=== PATIENT | male | born 1970 | race Caucasian/White ===

== ENCOUNTER 2017-04-27 20:54 | Emergency (ER) | payer OTHER ==
[~2017-04-27] VITALS: Ht 180.3 cm; Wt 110.3 kg
[2017-04-27 20:57] VITALS: TEMP 37.4; Ht 180.3 cm; Wt 110.3 kg
[2017-04-27 21:22] VITALS: O2SAT 94
[2017-04-27] MEDS ORDERED: OPTIRAY 320 IV PRN (21:30)
[2017-04-27 21:37] LABS: ISTAT CREATININE 1.3 mg/dl (0.6-1.3); ISTAT HEMOGLOBIN 15.6 g/dl (14.0-18.0); ISTAT IONIZED CALCIUM 1.26 mmol/l (1.12-1.32)
[2017-04-27 21:50] LABS: ALKALINE PHOSPHATASE 106 U/L (45-117); ALT/SGPT 75 U/L (12-78); AST/SGOT 48 U/L (15-37)
[2017-04-27 22:13] LABS: URINE APPEARANCE CLEAR (CLEAR); URINE BILIRUBIN NEG (NEG); URINE COLOR YELLOW; URINE NITRITE NEG (NEG); URINE SPECIFIC GRAVITY 1.014 (1.000-1.030); UROBILINOGEN NEG (NEG)
[2017-04-27 22:17] LABS: MANUAL MICROSCOPIC REQUIRED? NO; REVIEW REQ? NO
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
[2017-04-27 22:46] VITALS: BP 129/84; PULSE 83; O2SAT 96
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
== END 2017-04-27 22:47 | disposition home or self-care (01) ==
LOC: EDBD 20:54 → EDSEX 20:54 → C.EDB 20:55
DX: S22.22XA Fracture of body of sternum, initial encounter for closed fracture (principal); V48.5XXA Car driver injured in noncollision transport accident in traffic accident, initial encounter; Y93.89 Activity, other specified; Y99.8 Other external cause status; Y92.488 Other paved roadways as the place of occurrence of the external cause; Z87.891 Personal history of nicotine dependence